=== PATIENT | male | born 1995 | race African-American/Black ===

== ENCOUNTER 2020-05-22 16:14 | Emergency (ER) | payer MEDICAID, OTHER ==
[~2020-05-22] VITALS: Ht 185.4 cm; Wt 70.5 kg
[2020-05-22 16:57] VITALS: BP 136/72
== END 2020-05-22 20:19 | disposition left against medical advice (07) ==
LOC: EMS 16:14
DX: M79.672 Pain in left foot (principal); Z53.21 Procedure and treatment not carried out due to patient leaving prior to being seen by health care provider

== ENCOUNTER 2020-05-25 19:16 | Emergency (ER) | payer MEDICAID ==
[~2020-05-25] VITALS: Ht 177.8 cm; Wt 66.4 kg
[2020-05-25] MEDS ORDERED: CEPHALEXIN MONOHYDRATE 500 MG CAPSULE PO ONE (21:30)
[2020-05-25] MEDS ORDERED: SULFAMETHOX/TRIMETH DS 800-160 MG/TABLET PO ONE (21:30)
[2020-05-25 22:00] VITALS: BP 158/90
== END 2020-05-25 22:35 | disposition home or self-care (01) ==
LOC: EMS 19:22
DX: L03.116 Cellulitis of left lower limb (principal); L08.9 Local infection of the skin and subcutaneous tissue, unspecified
CPT/HCPCS: 99283